=== PATIENT | female | born 1995 | race African-American/Black ===

== ENCOUNTER 2019-09-07 09:18 | Emergency (ER) | payer OTHER ==
[~2019-09-07] VITALS: Ht 152.4 cm; Wt 57.1 kg
[2019-09-07 09:19] VITALS: BP 105/69
[2019-09-07] MEDS ORDERED: ONDA4TAB6 PO (09:52)
== END 2019-09-07 10:10 | disposition home or self-care (01) ==
LOC: M ED 09:18
DX: R19.7 Diarrhea, unspecified (principal); R11.0 Nausea

== ENCOUNTER 2019-12-30 07:59 | Emergency (ER) | payer OTHER ==
[~2019-12-30] VITALS: Ht 152.4 cm; Wt 54.5 kg
[~2019-12-30 07:59] MED LIST: ONDA4TAB6 PO
[2019-12-30] MEDS ORDERED: NS 1,000 ML IV ONE (08:15)
[2019-12-30 10:02] LABS: BASO % 0.3 % (0.0-1.0); EOS # 0.1 10^3/uL (0.0-0.5); EOS % 0.9 % (0.0-3.0); HEMATOCRIT 32.6 % (36.0-47.0); HEMOGLOBIN 10.9 g/dl (12.0-15.5); LYMPH # 2.1 10^3/uL (1.5-5.0); LYMPH % 21.3 % (24.0-44.0); MEAN CORPUSCULAR HEMOGLOBIN 28.8 pg (27.0-33.0); MEAN CORPUSCULAR HGB CONC 33.4 g/dl (32.0-36.5); MONO # 0.7 10^3/uL (0.0-0.8); MONO % 7.1 % (0.0-5.0); NEUTROPHILS % 70.1 % (36.0-66.0); PLATELET COUNT, AUTOMATED 399 10^3/uL (150-450); RED BLOOD COUNT 3.79 10^6/uL (4.00-5.40)
[2019-12-30] MEDS ORDERED: DOXYCYCLINE HYCLATE 100MG TABLET PO ONE (11:00)
[2019-12-30] MEDS ORDERED: cefTRIAXone SOD 1 GM in D5W MINI-BAG PLUS 50 ML IV ONE (11:00)
[2019-12-30] MEDS ORDERED: DOXY100C37 PO (11:49)
[2019-12-30 11:50] VITALS: BP 107/68
[2019-12-30] MEDS ORDERED: ACETAMINOPHEN TAB 650MG DOSE (2X325MG) PO ONE (12:00)
== END 2019-12-30 12:01 | disposition home or self-care (01) ==
LOC: M ED 07:59
DX: N73.8 Other specified female pelvic inflammatory diseases (principal); R10.9 Unspecified abdominal pain; Z03.818 Encounter for observation for suspected exposure to other biological agents ruled out
CPT/HCPCS: 85025; 96361; 96365; 99284; J0696; U0002

== ENCOUNTER 2020-01-04 15:21 | Emergency (ER) | payer OTHER ==
[~2020-01-04] VITALS: Ht 152.4 cm; Wt 57.0 kg
[~2020-01-04 15:21] MED LIST changes: +DOXY100C37 PO
[2020-01-04 15:22] VITALS: BP 116/66
== END 2020-01-04 16:05 | disposition left against medical advice (07) ==
LOC: M ED 15:21
DX: Z53.21 Procedure and treatment not carried out due to patient leaving prior to being seen by health care provider (principal)

== ENCOUNTER → 2022-01-20 | Outpatient (CLI) | payer OTHER ==
[~2022-01-20] MED LIST changes: +DOXY-443 PO; -DOXY100C37 PO; +PROHANCE 279.3MG/ML 15ML VIAL ONE; +PROHANCE 279.3MG/ML 5ML VIAL ONE
== END ==
LOC: M PLAIMG 12:55
PROVIDERS: ATTEND Nurse Practitioner Family
DX: E22.1 Hyperprolactinemia (principal); N91.2 Amenorrhea, unspecified
CPT/HCPCS: 70553; A9576